=== PATIENT | male | born 1985 | race African-American/Black ===

== ENCOUNTER 2021-03-12 04:38 | Emergency (ER) | payer OTHER ==
[2021-03-12 04:52] VITALS: BP 137/83; PULSE 79; TEMP 98.6; BMI 25.8
[2021-03-12] MEDS ORDERED: LIDOCAINE HCL 1%, 10 MG/ML (50 mL VIAL) SQ ONE (07:06)
[2021-03-12] MEDS ORDERED: LIDOCAINE HCL 1%, 10 MG/ML (20ML VIAL) ONE (07:09)
[2021-03-12] MEDS ORDERED: ONDANSETRON *ODT* 4 MG TABLET SL ONE ×2 (07:46→09:57)
[2021-03-12] MEDS ORDERED: ONDANSETRON *ODT* 4 MG TABLET ONE (07:49)
[2021-03-12] MEDS ORDERED: ONDANSETRON 4 MG TABLET PO ONE (09:58)
== END 2021-03-12 10:32 | disposition home or self-care (01) ==
LOC: JER 04:38 → JERFT 04:38
PROC: 0HQFXZZ Repair Right Hand Skin, External Approach (ICD-10-PCS; principal; 2021-03-12)
DX: S61.214A Laceration without foreign body of right ring finger without damage to nail, initial encounter (principal); S61.216A Laceration without foreign body of right little finger without damage to nail, initial encounter; S61.011A Laceration without foreign body of right thumb without damage to nail, initial encounter
CPT/HCPCS: 73110-TC-RT-FY; 73130-TC-RT-FY; 99284-25; Q0162